=== PATIENT | male | born 1950 | race Caucasian/White ===

== ENCOUNTER 2019-04-24 12:55 | Emergency (ER) | payer MEDICARE, BC ==
--- NOTE | 2019-04-24 14:12 | CT ---
CT cervical spine Technique: Multiple axial sections were obtained from above C1 inferiorly to the bottom of T2. Reconstructed sagittal and coronal images were obtained. Findings: Severe disc space narrowing is noted at C5-C6 and C6-C7 with posterior osteophytes and anterior osteophytes. Minimal spondylolisthesis is noted at C7-T1 compatible with degenerative apophyseal change. Other levels of the cervical spine also show degenerative apophyseal change. Bony structures are somewhat osteopenic. Mild left-sided neural foraminal stenosis is noted at C2-C3. Moderate left-sided neural foraminal stenosis is noted at C3-C4. Mild left-sided neural foraminal stenosis is noted C4-C5. Severe bilateral neural foraminal stenosis is noted at C5-C6. Moderate bilateral narrowing is noted of the neural foramina at C6-C7. Other neural foramina are patent. Mild central canal stenosis is noted at C5-C6 No fracture is identified. No acute subluxation is appreciated. Degenerative spurring is noted within the uncovertebral joints at C5-C6 and C6-C7. Mild scoliosis is noted. Impression: 1. Mild scoliosis and degenerative change as described above. 2. Nothing acute is appreciated on CT study of the cervical spine. Diagnostic code #2
--- NOTE | 2019-04-24 15:43 | EDM.PDOC ---
ED HPI GENERAL MEDICAL PROBLEM - General Chief Complaint: Trauma Stated Complaint: DS [employer] FLIGHT Time Seen by Provider: 04/24/19 13:08 Source of Information: Reports: Patient, EMS History Limitations: Reports: No Limitations - History of Present Illness INITIAL COMMENTS - FREE TEXT/NARRATIVE: The patient presents by [employer] for a horse accident. The patient's horse was spooked by something and he got bucked of and hit his head. He had an LOC of a couple minutes. He was confused for a few minutes after that. He had just a slight headache and left shoulder pain. He has no neck pain. [employer] helicopter was called because the patient was in a very remote part of the [facility]. The crew says the patient was walking on scene when they got there and he just had a mild headache. He had no numbness or weakness. He has a little pain to the left shoulder. He has no neck pain, chest pain, abdominal pain, leg or arm pain. He is not on any blood thinners. Onset: Sudden Duration: Hour(s): Location: Reports: Head Quality: Reports: Ache Severity: Mild Improves with: Reports: None Worsens with: Reports: None Associated Symptoms: Reports: Headaches. Denies: Chest Pain, Cough, Fever/ Chills, Nausea/Vomiting, Shortness of Breath Head Pain Score (Numeric/FACES): 2 - Related Data Allergies Allergy/AdvReac Type Severity Reaction Status Date / Time enviromental Allergy Difficulty Uncoded 04/24/19 13:01 Breathing Home Meds: Home Meds Tamsulosin HCl [Flomax] 0.4 mg PO DAILY 04/24/19 [History] Past Medical History Respiratory History: Reports: Asthma - Past Surgical History Other HEENT Surgeries/Procedures: wears glasses Social & Family History - Tobacco Use Smoking Status *Q: Never Smoker - Caffeine Use Caffeine Use: Reports: Coffee - Recreational Drug Use Recreational Drug Use: No Review of Systems - Review of Systems Review Of Systems: See Below Constitutional: Reports: No Symptoms Eyes: Reports: No Symptoms Ears: Reports: No Symptoms Nose: Reports: No Symptoms Mouth/Throat: Reports: No Symptoms Respiratory: Reports: No Symptoms Cardiovascular: Reports: No Symptoms GI/Abdominal: Reports: No Symptoms Genitourinary: Reports: No Symptoms Musculoskeletal: Reports: Shoulder Pain (Left) Skin: Reports: No Symptoms Neurological: Reports: Headache ED EXAM, GENERAL - Physical Exam Exam: See Below Exam Limited By: No Limitations General Appearance: Alert, No Apparent Distress Eye Exam: Bilateral Eye: EOMI Ears: Normal External Exam Nose: Normal Inspection Head: Atraumatic, Normocephalic Neck: Normal Inspection, Supple, Non-Tender Respiratory/Chest: No Respiratory Distress, Lungs Clear, Normal Breath Sounds Cardiovascular: Regular Rate, Rhythm, No Edema, No Murmur GI/Abdominal: Soft, Non-Tender, No Organomegaly, No Mass Back Exam: Normal Inspection Extremities: Normal Inspection Course - Vital Signs Last Recorded V/S: Last Vital Signs Temp 98.4 F 04/24/19 13:02 Pulse 83 04/24/19 13:02 Resp 13 04/24/19 13:02 BP 154/95 H 04/24/19 13:02 Pulse Ox 96 04/24/19 13:02 - Orders/Labs/Meds Orders: Active Orders 24 hr Category Date Time Status Cardiac Monitoring [RC] . DIRECTED Care 04/24/19 13:10 Active Head wo Cont [CT] Stat Exams 04/24/19 13:08 Taken Shoulder Comp Lt [CR] Stat Exams 04/24/19 13:21 Taken Labs: Laboratory Tests 04/24/19 04/24/19 Range/Units 13:18 13:18 WBC 6.52 (4.23-9.07) K/mm3 RBC 4.67 (4.63-6.08) M/mm3 Hgb 14.5 (13.7-17.5) gm/L Hct 42.8 (40.1-51.0) % MCV 91.6 (79.0-92.2) fl MCH 31.0 (25.7-32.2) pg MCHC 33.9 (32.2-35.5) g/dl RDW Std Deviation 44.0 H (35.1-43.9) fL Plt Count 244 (163-337) K/mm3 MPV 9.4 (9.4-12.3) fl Neut % (Auto) 77.6 H (34.0-67.9) % Lymph % (Auto) 14.3 L (21.8-53.1) % Canadian % (Auto) 6.3 (5.3-12.2) % Eos % (Auto) 1.1 (0.8-7.0) Baso % (Auto) 0.5 (0.1-1.2) % Neut # (Auto) 5.07 (1.78-5.38) K/mm3 Lymph # (Auto) 0.93 L (1.32-3.57) K/mm3 Canadian # (Auto) 0.41 (0.30-0.82) K/mm3 Eos # (Auto) 0.07 (0.04-0.54) K/mm3 Baso # (Auto) 0.03 (0.01-0.08) K/mm3 Sodium 140 (136-145) mEq/L Potassium 3.6 (3.5-5.1) mEq/L Chloride 103 (98-107) mEq/L Carbon Dioxide 25 (21-32) mEq/L Anion Gap 15.6 H (5-15) BUN 18 (7-18) mg/dL Creatinine 0.8 (0.7-1.3) mg/dL Est Cr Clr Drug Dosing 86.54 mL/min Estimated GFR (MDRD) > 60 (>60) mL/min BUN/Creatinine Ratio 22.5 H (14-18) Glucose 107 (80-115) mg/dL Calcium 8.8 (8.5-10.1) mg/dL Total Bilirubin 1.2 H (0.2-1.0) mg/dL AST 37 (15-37) U/L ALT 37 (16-63) U/L Alkaline Phosphatase 66 (46-116) U/L Total Protein 7.3 (6.4-8.2) g/dl Albumin 3.9 (3.4-5.0) g/dl Globulin 3.4 gm/dL Albumin/Globulin Ratio 1.2 (1-2) Lipase 89 (73-393) U/L - Re-Assessments/Exams Free Text/Narrative Re-Assessment/Exam: 04/24/19 15:[address] of his head and cervical spine and labs. 04/24/19 15:46 His CBC and CMP look good. His CT of his head shows a minimal hemorrhage measuring 4mm within the subcortical upper left posterior frontal region. Generalized atrophy asymmetrically more prominent within the frontal regions. Sinus disease which is chronic. The CT of his cervical spine shows mild scoliosis and degenerative change. Nothing acute is appreciated on CT study of the cervical spine. I called Dr Almaguer at [facility] the neurosurgeon and he wanted a repeat CT in 2 weeks. Departure - Departure Time of Disposition: 15:50 Disposition: Home, Self-Care 01 Condition: Good Clinical Impression: Fall Qualifiers: Encounter type: initial encounter Qualified Code(s): W19.XXXA - Unspecified fall, initial encounter Subcortical hemorrhage of cerebral hemisphere Qualifiers: Intracerebral hemorrhage etiology: nontraumatic Laterality: left Qualified Code (s): I61.0 - Nontraumatic intracerebral hemorrhage in hemisphere, subcortical - Discharge Information *PRESCRIPTION DRUG MONITORING PROGRAM REVIEWED*: No *COPY OF PRESCRIPTION DRUG MONITORING REPORT IN PATIENT KI: No Referrals: PCP,Not In Area [Primary Care Provider] - Anjel Almaguer MD [Consulting Physician] - 2 Weeks Additional Instructions: Take tylenol for the pain. Follow up in [address] Almaguer or your doctor for a repeat CT of your head. Please return if you are worse. - My Orders Last 24 Hours: My Active Orders 04/24/19 13:08 Head wo Cont [CT] Stat 04/24/19 13:10 Cardiac Monitoring [RC] . DIRECTED 04/24/19 13:21 Shoulder Comp Lt [CR] Stat - Assessment/Plan Last 24 Hours: My Active Orders 04/24/19 13:08 Head wo Cont [CT] Stat 04/24/19 13:10 Cardiac Monitoring [RC] . DIRECTED 04/24/19 13:21 Shoulder Comp Lt [CR] Stat
--- NOTE | 2019-04-25 06:27 | CR ---
Left shoulder: Three views of the left shoulder were obtained. Comparison: No prior shoulder study. Minimal inferior spurring is noted within the acromioclavicular joint. Glenohumeral joint appears within normal limits. No fracture, dislocation or other bony abnormality is seen. Impression: 1. Minimal inferior spurring within the acromioclavicular joint. 2. Left shoulder study is otherwise unremarkable. Diagnostic code #2
--- NOTE | 2019-04-25 08:36 | CT ---
Head CT Technique: Multiple axial sections through the brain were obtained. Intravenous contrast was not utilized. Comparison: No prior intracranial imaging is available. Findings: Sulci over the convexities are mildly prominent which is asymmetrically more prominent within the frontal regions compatible with asymmetric frontal atrophy. Minimal area of increased density is noted within the upper left posterior subcortical frontal region compatible with minimal hemorrhage measuring approximately 4 mm in size. No other areas of intracranial hemorrhage are seen. No midline shift or mass effect is appreciated. Mucosal thickening scattered within the ethmoid sinuses. Mucosal thickening or retention cyst noted within the left maxillary sinus. Visualized mastoid sinuses are clear. No acute calvarial abnormality is seen. Impression: 1. Minimal hemorrhage measuring 4 mm within the subcortical upper left posterior frontal region. 2. Generalized atrophy asymmetrically more prominent within the frontal regions. 3. Sinus disease which is chronic. Diagnostic code #3 MTDD
== END 2019-04-24 16:20 | disposition home or self-care (01) ==
LOC: JD.ED 12:55
DX: S06.351A Traumatic hemorrhage of left cerebrum with loss of consciousness of 30 minutes or less, initial encounter (principal); Z79.899 Other long term (current) drug therapy; W55.12XA Struck by horse, initial encounter; Y93.52 Activity, horseback riding
CPT/HCPCS: 36415; 70450; 70450-26; 72125; 72125-26; 73030-26-LT; 73030-LT; 80053; 83690; 85025; 99285-25